=== PATIENT | male | born 1985 | race Caucasian/White ===

== ENCOUNTER 2016-12-13 09:53 | Day surgery (SDC) | payer BC ==
[~2016-12-13] VITALS: Ht 160 cm; Wt 67.0 kg
[~2016-12-13 09:53] MED LIST: BUPIVACAINE 0.25% (MPF) 30 ML INJ ONE; CYCL-319 PO; IBUP-1542 PO
[2016-12-13] MEDS ORDERED: SOD CHLORIDE 0.9% 1,000 ML IV SCH (10:00)
[2016-12-13] MEDS ORDERED: CEFAZOLIN 2 GM/50 ML (PMX) 50 ML IVPB ONE (10:00)
[2016-12-13 10:28] VITALS: BP 108/69; PULSE 58; RESP 20
[2016-12-13 10:34] VITALS: Ht 160 cm; Wt 67.0 kg
[2016-12-13] MEDS ORDERED: LIDOCAINE 2% (SDV) 5 ML INJ ONE (10:35)
[2016-12-13] MEDS ORDERED: PROPOFOL 20 ML ONE (10:35)
[2016-12-13] MEDS ORDERED: FENTAnyl 50 MCG/ML VIAL ONE (10:36)
[2016-12-13] MEDS ORDERED: MIDAZOLAM 1 MG/ML 2 ML INJ ONE (10:36)
[2016-12-13] MEDS ORDERED: BUPIVACAINE 0.5% (SDV) 30 ML INJ ONE (10:56)
[2016-12-13] MEDS ORDERED: LIDOCAINE 2% (MDV) 20 ML INJ ONE (10:56)
[2016-12-13] MEDS ORDERED: CEFAZOLIN 1 GM INJ ONE (11:06)
[2016-12-13] MEDS ORDERED: ONDANSETRON 4 MG INJ ONE (11:06)
--- NOTE | 2016-12-13 11:11 | OPR ---
Date/Time of Note Date/Time of Note DATE: 12/13/16 TIME: 11:07 Operative Report Procedure Date: Dec 13, 2016 Preoperative Diagnosis right dorsal ganglion cyst Postoperative Diagnosis same Operation Performed 1. right dorsal ganglion cyst excision 2 cm cyst and 2 cm incision 2. localized adjacent tissue transfer with the use of skin flaps 4 sq cm defect 3. therapeutic injection of subcutaneous marcaine cpt code [id number] Surgeon: Linda BEGUM Specimens right dorsal ganglion cyst Indications This is a 31-year-old male with a right dorsal ganglion cyst. He requests surgical excision. Risks alternatives benefits and percent were discussed the patient. Patient expresses understanding consents to the operation Procedure Description Patient is taken to the OR and prepped and draped in usual sterile fashion. Surgical timeout was performed. IV antibiotics given. Transverse incision is made over the right dorsal ganglion cyst with a 15 blade after local anesthesia is infiltrated along the cyst. Dissection cautery was carefully used to identify the cyst. The cyst is identified and dissected bluntly with mosquito. The cyst is ruptured and contents are extruded. The cyst wall and the base of the cyst is excised. There is good hemostasis. Due to the large tissue defect localized adjacent tissue transfer with these of skin flaps was performed multilayer closure with interrupted 3-0 Vicryl and running 4-0 Monocryl. Dermabond is applied. Linda BGEUM Dec 13, 2016 11:11
[2016-12-13 11:19] VITALS: BP 103/60; PULSE 54; RESP 14
[2016-12-13 11:24] VITALS: BP 91/56; PULSE 52; RESP 14
[2016-12-13 11:29] VITALS: BP 96/59; PULSE 52; RESP 14
[2016-12-13] MEDS ORDERED: DIPHENHYDRAMINE 50 MG INJ IV PRN (11:30)
[2016-12-13] MEDS ORDERED: HYDROCODONE/APAP (5/325) TAB PO ONE (11:30)
[2016-12-13] MEDS ORDERED: FENTAnyl 50 MCG/ML VIAL IV PRN (11:30)
[2016-12-13] MEDS ORDERED: MEPERIDINE 25 MG INJ IV PRN (11:30)
[2016-12-13] MEDS ORDERED: ONDANSETRON 4 MG INJ IV PRN (11:30)
[2016-12-13 11:34] VITALS: BP 95/65; PULSE 52; RESP 14
[2016-12-13 11:58] VITALS: BP 112/67; PULSE 57; RESP 18
== END 2016-12-13 12:25 | disposition home or self-care (01) ==
LOC: SDS 09:53
PROVIDERS: ATTEND Surgery
DX: M67.431 Ganglion, right wrist (principal)
CPT/HCPCS: 25111; 88304; J0690; J2250; J2405; J3010; Z7512; Z7610

== ENCOUNTER 2017-10-19 13:37 | Emergency (ER) | END 2017-10-19 15:10 | disposition home or self-care (01) ==